=== PATIENT | male | born 1940 | race African-American/Black ===

== ENCOUNTER 2022-12-19 18:35 | Emergency (ER) | payer OTHER ==
[~2022-12-19] VITALS: Ht 182.9 cm; Wt 92.5 kg
[2022-12-19 19:11] VITALS: BP_SYST 124; PULSE 79; RESP 19; TEMP 99.5; O2SAT 98
--- NOTE | 2022-12-19 19:14 | NUR ---
Patient triaged and placed in waiting room. VSS and patient appears in no acute distress at this time. Accompanied by FAMILY, awaiting available bed, and MD notified of need for MSE.
--- NOTE | 2022-12-19 20:18 | NUR ---
MD DR ESQUEDA ASSESS PT
--- NOTE | 2022-12-19 21:32 | NUR ---
Patient given written and verbal discharge instructions and verbalizes understanding. ER MD discussed with patient the results and treatment provided. Patient in stable condition. ID arm band removed. Patient educated on ANKLE PAIN management and to follow up with PMD. Pain Scale 0. Opportunity for questions provided and answered. Medication side effect fact sheet provided.
[2022-12-19 21:35] VITALS: BP_SYST 124; PULSE 79; RESP 19; TEMP 99.5; O2SAT 98
== END 2022-12-19 21:35 | disposition home or self-care (01) ==
LOC: SED 18:35
DX: M25.572 Pain in left ankle and joints of left foot (principal); R22.42 Localized swelling, mass and lump, left lower limb; I10 Essential (primary) hypertension; Z79.899 Other long term (current) drug therapy
CPT/HCPCS: 93971; 99284